=== PATIENT | female | born 1955 | race Hispanic/Latino ===

== ENCOUNTER 2019-03-20 08:51 | Outpatient (RCR) | payer OTHER | END 2019-03-22 | LOC: PT 08:51 | PROVIDERS: ATTEND Specialist | DX: M17.11 Unilateral primary osteoarthritis, right knee (principal); M62.81 Muscle weakness (generalized) ==

== ENCOUNTER 2019-04-04 12:46 | Outpatient (RCR) | payer OTHER | END 2019-04-21 | LOC: PT 12:46 | PROVIDERS: ATTEND Specialist | DX: M17.11 Unilateral primary osteoarthritis, right knee (principal); M62.81 Muscle weakness (generalized) ==